=== PATIENT | male | born 2000 | race Caucasian/White ===

== ENCOUNTER 2023-07-27 11:26 | Outpatient (CLI) | payer OTHER, SELFPAY ==
--- NOTE | 2023-08-01 16:07 | WPDHOLTEREM ---
Holter/Event Monitor Holter/Event Monitor Date of procedure: 07/27/23 Holter/Event Procedure: 48 Hr Holter Monitor Indications: Palpitations Conclusion: 1. 48 hour holter monitor on 07/27/23. 2. Underlying rhythm is sinus rhythm. HR range 41-130 bpm; average HR 72 bpm. HR at 41 bpm was at 04:29. 3. There are 3 premature supraventricular complexes. No supraventricular tachycardia. 4. There are 186 premature ventricular complexes, 5 ventricular couplets, 3 ventricular trigeminy. No ventricular tachycardia. 5. No sinoatrial or atrioventricular blocks. No significant pauses greater than 2 seconds. 6. Patient reports symptoms of chest pain, hard beats, fluttering which demonstrate sinus rhythm, HR range 65-91 bpm.
== END 2023-07-27 11:27 | disposition home or self-care (01) ==
LOC: ANHCARD 11:27
PROVIDERS: PCP Physician Assistant; Visit Provider Physician Assistant
DX: R00.2 Palpitations (principal)
CPT/HCPCS: 93225; 93226

== ENCOUNTER 2023-10-24 08:12 | Outpatient (CLI) | payer OTHER, SELFPAY ==
--- NOTE | 2023-10-27 15:37 | WPDHOMESLEEP ---
Sleep Study - Home Unattended Date of Study: 10/24/23 Ordering Provider: Eric Dang DO Interpreting Provider: Alicia Vasquez MD Home Sleep Study Type: Watch PAT Height: 1.75 m Weight: 70.307 kg Body Mass Index: 22.8 Neck Circumference (inches): 15 [place]: 10 Reason for Sleep Study Hypersomnolence, daytime fatigue, napping Sleep History Duane Watts is a 23-year-old male, referred by his bindery leadperson who noted the patient had hypersomnia. He was being evaluated for palpitations. there was a concern for sent will sleep apnea. His father has obstructive sleep apnea. Mother has difficulty staying asleep due to restless legs syndrome. He rarely awakens from sleep feeling short of breath. He occasionally awakens at night with coughing. He is not sure if he snores but he does not snore loudly enough that others complain about it. He rarely has difficulty sleeping with a cold. He does not wake up gasping for breath at night. He frequently sweats at night and constantly notices his heart pounding or beating irregularly at night. He occasionally falls asleep during the day but never involuntarily or while driving. he rarely has loss of muscle tone with strong emotion. He occasionally has daytime difficulties due to excessive sleepiness, works as a lead software architect. He does not feel paralyzed on waking or falling asleep. He occasionally has vivid dreamlike scenes upon awakening or falling asleep. He does not feel afraid to go to sleep. He rarely has nightmares. He rarely remembers his dreams. He frequently has racing thoughts. He rarely feels sad or depressed. He occasionally has anxiety. he occasionally notices parts of his body jerking. He rarely kicks at night. He never has crawling or aching feelings in his legs. He does not have any kind of leg pain at night. He rarely has morning jaw pain. He rarely grinds his teeth during sleep. He rarely is bothered by pain during the day. He never is awakened by pain during the night. He rarely wakes up feeling stiff in the morning with sore or achy muscles, rarely wakes up with pain in the neck or spine. he has had tonsils and adenoids removed. Normal bedtime is 11:30 p.m. taking 30 minutes to fall asleep. Typically he will wake up 1-2 times during the night to get a drink of water, check his phone, go to the bathroom, change the lighting to make it darker, changes close and turn on fans. He is able to return to sleep within 15 minutes. His normal wake up time is 8:00 a.m.. On weekends, bedtime may be later, between 11:30 p.m. and 12:30 a.m.. On weekends, he wakes up at 9:00 a.m.. He estimates getting between 8 and 9 hours of sleep at night. He takes naps in the afternoon or evening. A short nap lasting 10-15 minutes may be refreshing. He frequently awakens feeling refreshed. He occasionally has daytime sleepiness. On rare occasion he has a morning headache, rarely has memory or concentration problems. Habits: Never smoked tobacco. Caffeine: none Alcohol: none Recreational substances: none PMFSH Past Medical History Medical History Palpitations Surgical History Surgical History History of adenectomy History of placement of ear tubes History of tonsillectomy [place] teeth removed Family History Family History (Updated 11/03/23 @ 14:25 by Alicia Vasquez MD) Father Alcoholism Hypertension Cerebrovascular accident PCT (porphyria cutanea tarda) Obstructive sleep apnea Mother Alcoholism Thyroid disorder Sibling Asthma Grandparent Cerebrovascular accident Alcoholism Heart disease Emphysema, unspecified Social History Social History Smoking status: Never smoker Alcohol intake: current Substance use: unknown Lack of Transportation: No Lack of Food: Never True Curr
[2023-11-03 14:31] VITALS: BMI 22.8
== END 2023-10-26 07:30 | disposition home or self-care (01) ==
LOC: ANHCSM 08:16
PROVIDERS: PCP Physician Assistant; Visit Provider Internal Medicine Cardiovascular Disease
DX: G47.10 Hypersomnia, unspecified (principal)
CPT/HCPCS: 95800

== ENCOUNTER 2023-12-29 14:11 | Outpatient (CLI) | payer OTHER, SELFPAY ==
--- NOTE | 2024-01-05 12:29 | WPDHOLTEREM ---
Holter/Event Monitor Holter/Event Monitor Date of procedure: 12/29/23 Holter/Event Procedure: 48 Hr Holter Monitor Indications: Palpitations Conclusion: 1. 48 hour holter monitor on 12/29/23. 2. Underlying rhythm is sinus rhythm. HR range 43-104 bpm; average HR 62 bpm. HR at 43 bpm at 03:47. 3. There are 4 premature supraventricular complexes and 2 supraventricular couplets. No supraventricular tachycardia. 4. There are 293 premature ventricular complexes, 25 ventricular couplets, 2 ventricular triplets, and 39 ventricular trigeminy. No ventricular tachycardia. 5. No sinoatrial or atrioventricular blocks. No significant pauses greater than 2 seconds. 6. Patient reports symptoms of fluttering, chest pain which demonstrate sinus rhythm, HR range 48-87 bpm.
== END 2023-12-29 14:12 | disposition home or self-care (01) ==
LOC: ANHCARD 14:12
PROVIDERS: PCP Physician Assistant; Visit Provider Physician Assistant
DX: R00.2 Palpitations (principal)
CPT/HCPCS: 93225; 93226

== ENCOUNTER 2024-02-06 09:58 | Outpatient (CLI) | payer OTHER, SELFPAY ==
--- NOTE | 2024-02-06 10:06 | EST_ITS ---
Patient Info Name: Duane Watts Age: 23 years : 2000 Gender: Male Ht: 70 in Wt: 155 lbs BSA: 1.86 m2 HR: 71 bpm BP: 127 / 74 mmHg Heart Rhythm: Sinus Rhythm Exam Date: 02/06/2024 10:19 AM Exam Location: [facility] Patient Status: Outpatient Admit Date: 02/06/2024 Staff Ordering Physician: Eric Dang DO Attending Provider: Eric Dang DO Exercise Technologist: Torri Cat CT Exercise Physician: Eric Dang DO Exam Type: CA stress test treadmill Study Info Indications R07.9 - Chest pain, unspecified A treadmill exercise stress test was performed. Summary 1. 1. Negative Gerardo exercise stress test for ischemic ST changes by ECG criteria. 2. 2. Good functional capacity, achieving 11.8 METs of workload. 3. 3. Appropriate HR response to exercise. 4. 4. Appropriate HR recovery at 1 minute post exercise. 5. 5. No imaging with stress testing. 6. 6. Patient informed of the above results. Protocol: Gerardo Stress ECG Details Stage: REST Duration (min): 1 min : 3 sec Speed (mph): 0.0 Grade (%): 0 HR (bpm): 71 SBP (mmHg): 127 DBP (mmHg): 74 METS: --- Stage: REST Duration (min): 3 min : 56 sec Speed (mph): 0.0 Grade (%): 0 HR (bpm): 92 SBP (mmHg): 127 DBP (mmHg): 74 METS: --- Stage: STAGE 1 Duration (min): 1 min : 0 sec Speed (mph): 1.7 Grade (%): 10 HR (bpm): 105 SBP (mmHg): 127 DBP (mmHg): 74 METS: --- Stage: STAGE 1 Duration (min): 2 min : 0 sec Speed (mph): 1.7 Grade (%): 10 HR (bpm): 118 SBP (mmHg): 127 DBP (mmHg): 74 METS: --- Stage: STAGE 1 Duration (min): 3 min : 0 sec Speed (mph): 1.7 Grade (%): 10 HR (bpm): 120 SBP (mmHg): 150 DBP (mmHg): 77 METS: --- Stage: STAGE 2 Duration (min): 1 min : 0 sec Speed (mph): 2.5 Grade (%): 12 HR (bpm): 132 SBP (mmHg): 150 DBP (mmHg): 77 METS: --- Stage: STAGE 2 Duration (min): 2 min : 0 sec Speed (mph): 2.5 Grade (%): 12 HR (bpm): 140 SBP (mmHg): 141 DBP (mmHg): 73 METS: --- Stage: STAGE 2 Duration (min): 3 min : 0 sec Speed (mph): 2.5 Grade (%): 12 HR (bpm): 145 SBP (mmHg): 141 DBP (mmHg): 73 METS: --- Stage: STAGE 3 Duration (min): 1 min : 0 sec Speed (mph): 3.4 Grade (%): 14 HR (bpm): 153 SBP (mmHg): 146 DBP (mmHg): 69 METS: --- Stage: STAGE 3 Duration (min): 2 min : 0 sec Speed (mph): 3.4 Grade (%): 14 HR (bpm): 156 SBP (mmHg): 146 DBP (mmHg): 69 METS: --- Stage: STAGE 3 Duration (min): 3 min : 0 sec Speed (mph): 3.4 Grade (%): 14 HR (bpm): 161 SBP (mmHg): 158 DBP (mmHg): 59 METS: --- Stage: STAGE 4 Duration (min): 0 min : 51 sec Speed (mph): 4.2 Grade (%): 16 HR (bpm): 168 SBP (mmHg): 158 DBP (mmHg): 59 METS: --- Stage: RECOVERY Duration (min): 0 min : 8 sec Speed (mph): 1.5 Grade (%): 0 HR (bpm): 166 SBP (mmHg): 158 DBP (mmHg): 59 MET
== END 2024-02-06 09:59 | disposition home or self-care (01) ==
LOC: ANHCARD 10:02
PROVIDERS: PCP Physician Assistant; Visit Provider Internal Medicine Cardiovascular Disease
DX: R07.9 Chest pain, unspecified (principal)
CPT/HCPCS: 93017